=== PATIENT | male | born 1970 | race Caucasian/White ===

== ENCOUNTER 2020-09-10 14:56 | Outpatient (CLI) | payer BC, SELFPAY ==
--- NOTE | ~2020-09-10 | MR_ITS ---
EXAMINATION: MR pituitary wo/w con DATE: 09/10/2020 16:24 INDICATION: Hypopituitarism. Hyperprolactinemia. TECHNIQUE: Magnetic resonance imaging (MRI) of the brain and brainstem was performed without and with 20 mL MultiHance intravenous contrast. Whole-brain sequences included sagittal T1-weighted FSE, axia l diffusion-weighted FS EPI, axial T2*-weighted GRE, axial T2-weighted FLAIR Propeller, and axial T2- weighted Propeller. Small [id number] sequences included sagittal and coronal T1-weighted FSE cente red at the pituitary. Postcontrast sequences included small [id number] coronal T1-weighted FSE in a time course and sagittal T1-weighted FSE and whole-brain axial T1-weighted FSE. Apparent diffusion coefficient (ADC) maps were created. COMPARISON: None. FINDINGS: The pituitary is normal in size with height of 4 mm and concave superior margin. The infund ibulum is at the midline. There is no intracranial hemorrhage, acute infarction, or abnormal intracra nial mass lesion. The ventricles are normal in size. There is mild mucosal thickening in the paranasa l sinuses. The mastoid air cells are normal. The orbits are normal. IMPRESSION: 1. Normal brain. Normal pituitary. Reviewed, dictated and finalized at location A. [facility]
[2020-09-10 15:46] LABS: Estimated Glomerular Filt Rate 53
== END 2020-09-10 14:57 | disposition home or self-care (01) ==
PROVIDERS: PCP Internal Medicine; Visit Provider Internal Medicine
DX: E23.0 Hypopituitarism (principal); R79.89 Other specified abnormal findings of blood chemistry
CPT/HCPCS: 70553; A9577

== ENCOUNTER 2021-02-17 13:41 | Outpatient (CLI) | payer BC, SELFPAY ==
--- NOTE | ~2021-02-17 | MR_ITS ---
EXAMINATION: MR knee RT wo con DATE: 02/17/2021 14:48 INDICATION: Right knee injury TECHNIQUE: Magnetic resonance imaging (MRI) of the right knee was performed without intravenous contr ast. Sequences included coronal PD-weighted FSE, coronal PD-weighted FS FSE, sagittal T2-weighted FS E, sagittal PD-weighted FS FSE and axial PD weighted fat saturated FSE. COMPARISON: None. FINDINGS: There is a focus of marked metallic magnetic field artifact centered at the anterolateral aspect of t he right knee which completely obscures the immediately surrounding tissues and which distorts and re sults in signal changes, less severely limiting evaluation of the more distal tissues. Medial compartment: Longitudinal horizontal tear extending to the inferior articular surface of the posterior body and po sterior horn of the medial meniscus. Partial-thickness chondral fissuring without degenerative subcho ndral changes along the lateral aspect of the anterior weightbearing medial femoral condyle. Partial- thickness cartilage loss with smooth chondral surface along portions of the posterior weightbearing m edial femoral condyle. Lateral compartment: The anterior horn of the lateral meniscus and adjacent cartilage is obscured by artifact. The visuali zed more posterior lateral meniscus is normal. Visualized portions of the articular cartilage cartila ge are normal. Patellofemoral compartment: Mild partial-thickness cartilage loss with smooth chondral surface and without degenerative subchondr al changes at the patellar apical ridge and medial facet. Ligaments and tendons: Anterior and posterior cruciate ligaments are normal. The medial collateral ligament and fibular cristofer ateral ligament complex are normal. Evaluations extensor mechanism is significantly limited by artifa ct. There appears be a least mild distal quadriceps tendinopathy without discrete tear. Possible dist al patellar tendinopathy. The visualized medial and lateral hamstring tendons as well as the iliotibi al band are normal. Moderate grade sprain/partial tear of the proximal tendon and myotendinous juncti on of the medial head of the gastrocnemius muscle with prominent edema both within and surrounding th e muscle. Fluid: Moderate-sized knee joint effusion at the suprapatellar pouch. No loose osteochondral bodies identifi ed. Osseous/other: Small bone island at the posterior aspect of the lateral femoral condyle. Marrow signal is otherwise normal. No fracture, reactive edema or pathologic marrow replacing process. IMPRESSION: 1. Evaluation significantly limited by marked metallic magnetic field artifact centered at the ethel medial aspect of the knee which is of indeterminate etiology. This affects primarily the assessment o f the cartilage and is suspected the anterior horn of the lateral meniscus is essentially nondiagnost ic. 2. Moderate grade strain/partial tear at the tendon and myotendinous junction of the proximal proxima l medial head of the gastrocnemius. 3. Moderate-sized right knee joint effusion. Reviewed, dictated and finalized at location A. IMPRESSION: 1. Evaluation significantly limited by marked metallic magnetic field artifact centered at the anteromedial aspect of the knee which is of indeterminate etiol ogy. This affects primarily the assessment of the cartilage and is suspected th e anterior horn of the lateral meniscus is essentially nondiagnostic. 2. Moderate grade strain/partial tear at the tendon and myotendinous junction o f the proximal proximal medial head of the gastrocnemius. 3. Moderate-sized right knee joint effusion.
== END 2021-02-17 13:42 | disposition home or self-care (01) ==
PROVIDERS: PCP Internal Medicine; Visit Provider Nurse Practitioner
DX: M25.561 Pain in right knee (principal); S86.811A Strain of other muscle(s) and tendon(s) at lower leg level, right leg, initial encounter; M25.461 Effusion, right knee
CPT/HCPCS: 73721